=== PATIENT | female | born 2000 | race Caucasian/White ===

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

== ENCOUNTER → 2022-08-08 | Outpatient (CLI) | payer OTHER ==
[~2022-08-08] MED LIST changes: +ONDA4TAB6 PO
[2022-08-08 16:10] LABS: BASO % 0.3 % (0.0-1.0); EOS # 0.2 10^3/uL (0.0-0.5); EOS % 2.7 % (0.0-3.0); HEMATOCRIT 39.3 % (36.0-47.0); HEMOGLOBIN 12.4 g/dl (12.0-15.5); LYMPH % 47.7 % (24.0-44.0); MEAN CORPUSCULAR HEMOGLOBIN 25.7 pg (27.0-33.0); MEAN CORPUSCULAR HGB CONC 31.6 g/dl (32.0-36.5); MEAN CORPUSCULAR VOLUME 81.4 fl (80.0-96.0); MONO # 0.6 10^3/uL (0.0-0.8); MONO % 8.8 % (2.0-8.0); NEUTROPHILS # 2.5 10^3/uL (1.5-8.5); NEUTROPHILS % 40.2 % (36.0-66.0); PLATELET COUNT, AUTOMATED 274 10^3/uL (150-450); RED BLOOD COUNT 4.83 10^6/uL (4.00-5.40); WHITE BLOOD COUNT 6.2 10^3/uL (4.0-10.0)
[2022-08-08 18:01] LABS: ALBUMIN 3.8 GM/DL (3.2-5.2); BLOOD UREA NITROGEN 10 MG/DL (7-18); CALCIUM LEVEL 9.5 MG/DL (8.5-10.1); CARBON DIOXIDE LEVEL 29 MEQ/L (21-32); CHLORIDE LEVEL 106 MEQ/L (98-107); FREE T4 1.11 NG/DL (0.76-1.46); GLOMERULAR FILTRATION RATE > 60.0 (>60); GLUCOSE, FASTING 92 MG/DL (70-100); PHOSPHORUS LEVEL 3.2 MG/DL (2.5-4.9); POTASSIUM SERUM 4.2 MEQ/L (3.5-5.1); SODIUM LEVEL 138 MEQ/L (136-145); THYROID STIMULATING HORMONE 0.841 uIU/ML (0.358-3.740)
[2022-08-08 18:28] LABS: HCG, SERUM QUALITATIVE NEGATIVE (NEGATIVE)
== END ==
LOC: M LAB 15:16
PROVIDERS: ATTEND Physician Assistant
DX: Z00.8 Encounter for other general examination (principal); N91.2 Amenorrhea, unspecified; R53.83 Other fatigue

== ENCOUNTER 2023-03-27 18:43 | Emergency (ER) | payer OTHER ==
[~2023-03-27] VITALS: Ht 162.6 cm; Wt 93.2 kg
[2023-03-27 18:44] VITALS: TEMP 98.8
[2023-03-27] MEDS ORDERED: BACT800T5 PO (21:14)
[2023-03-27] MEDS ORDERED: IBUP-1022 PO (21:14)
[2023-03-27] MEDS ORDERED: IBUPROFEN 600MG TAB PO ONE (21:15)
[2023-03-27] MEDS ORDERED: BACTRIM 160MG/800MG DS TAB PO ONE (21:20)
[2023-03-27 21:23] VITALS: BP 125/75; O2SAT 99
== END 2023-03-27 21:27 | disposition home or self-care (01) ==
LOC: M ED 18:43
DX: L03.031 Cellulitis of right toe (principal); F10.10 Alcohol abuse, uncomplicated; Z79.1 Long term (current) use of non-steroidal anti-inflammatories (NSAID); Z79.83 Long term (current) use of bisphosphonates; Z79.899 Other long term (current) drug therapy

== ENCOUNTER → 2023-07-12 | Outpatient (REF) | payer OTHER ==
[~2023-07-12] MED LIST changes: +BACT800T5 PO; +IBUP-1022 PO
== END ==
LOC: M LAB REF 16:56
PROVIDERS: ATTEND Nurse Practitioner Family
DX: J02.9 Acute pharyngitis, unspecified (principal)

== ENCOUNTER 2023-09-04 21:51 | Emergency (ER) | payer MEDICAID, OTHER ==
[~2023-09-04] VITALS: Ht 162.6 cm; Wt 78.8 kg
[2023-09-04 22:51] LABS: BASO # 0.1 10^3/uL (0.0-0.2); BASO % 0.6 % (0.0-1.0); EOS # 0.3 10^3/uL (0.0-0.5); EOS % 3.4 % (0.0-3.0); HEMATOCRIT 45.2 % (36.0-47.0); HEMOGLOBIN 15.1 g/dl (12.0-15.5); LYMPH # 2.8 10^3/uL (1.5-5.0); LYMPH % 28.3 % (24.0-44.0); MEAN CORPUSCULAR HEMOGLOBIN 27.9 pg (27.0-33.0); MEAN CORPUSCULAR HGB CONC 33.4 g/dl (32.0-36.5); MEAN CORPUSCULAR VOLUME 83.4 fl (80.0-96.0); MONO # 0.6 10^3/uL (0.0-0.8); MONO % 5.5 % (2.0-8.0); NEUTROPHILS # 6.2 10^3/uL (1.5-8.5); NEUTROPHILS % 61.7 % (36.0-66.0); PLATELET COUNT, AUTOMATED 316 10^3/uL (150-450); RED BLOOD COUNT 5.42 10^6/uL (4.00-5.40); WHITE BLOOD COUNT 10.1 10^3/uL (4.0-10.0)
[2023-09-04 23:10] LABS: LIPASE 28 U/L (12-53)
[2023-09-04 23:12] LABS: ALBUMIN 3.9 G/DL (3.2-5.2); ALKALINE PHOSPHATASE 77 U/L (46-116); ALT/SGPT 26 U/L (7.0-40); AST/SGOT 14 U/L (<34); BILIRUBIN,DIRECT < 0.1 MG/DL (<0.4); BILIRUBIN,TOTAL 0.3 MG/DL (0.3-1.2); TOTAL PROTEIN 7.6 G/DL (5.7-8.2)
[2023-09-04 23:17] LABS: HCG, SERUM QUALITATIVE NEGATIVE (NEGATIVE)
[2023-09-05 00:08] LABS: BLOOD UREA NITROGEN 13 MG/DL (9-23); CALCIUM LEVEL 9.5 MG/DL (8.5-10.1); CARBON DIOXIDE LEVEL 29 MMOL/L (20-31); CHLORIDE LEVEL 103 MMOL/L (98-107); CREATININE FOR GFR 0.79 MG/DL (0.55-1.30); GLOMERULAR FILTRATION RATE > 60.0 (>60); GLUCOSE, FASTING 107 MG/DL (60-100); POTASSIUM SERUM 4.1 MMOL/L (3.5-5.1); SODIUM LEVEL 140 MMOL/L (136-145)
[2023-09-05 06:34] VITALS: BP 118/74; TEMP 97.4; O2SAT 99
[2023-09-05] MEDS ORDERED: MAGNESIUM CITRATE 300ML BTL PO ONE (06:35)
[2023-09-05] MEDS ORDERED: COLA100C5 PO (06:41)
== END 2023-09-05 06:49 | disposition home or self-care (01) ==
LOC: M ED 21:51
DX: K59.00 Constipation, unspecified (principal); F10.10 Alcohol abuse, uncomplicated; Z79.83 Long term (current) use of bisphosphonates; Z79.1 Long term (current) use of non-steroidal anti-inflammatories (NSAID); Z79.899 Other long term (current) drug therapy

== ENCOUNTER → 2024-01-15 | Outpatient (REF) | payer OTHER ==
[~2024-01-15] MED LIST changes: +COLA100C5 PO
[2024-01-15 14:48] LABS: BASO # 0.1 10^3/uL (0.0-0.2); BASO % 0.7 % (0.0-1.0); EOS # 0.2 10^3/uL (0.0-0.5); EOS % 2.1 % (0.0-3.0); HEMATOCRIT 42.6 % (36.0-47.0); HEMOGLOBIN 14.2 g/dl (12.0-15.5); LYMPH # 2.2 10^3/uL (1.5-5.0); MEAN CORPUSCULAR HEMOGLOBIN 28.5 pg (27.0-33.0); MEAN CORPUSCULAR HGB CONC 33.3 g/dl (32.0-36.5); MEAN CORPUSCULAR VOLUME 85.5 fl (80.0-96.0); MONO # 0.6 10^3/uL (0.0-0.8); MONO % 7.4 % (2.0-8.0); NEUTROPHILS # 4.6 10^3/uL (1.5-8.5); NEUTROPHILS % 60.5 % (36.0-66.0); PLATELET COUNT, AUTOMATED 269 10^3/uL (150-450); RED BLOOD COUNT 4.98 10^6/uL (4.00-5.40); WHITE BLOOD COUNT 7.6 10^3/uL (4.0-10.0)
[2024-01-15 15:00] LABS: HEMOGLOBIN A1c 4.8 % (4.0-6.0)
[2024-01-15 15:18] LABS: ALBUMIN 3.7 G/DL (3.2-5.2); ALKALINE PHOSPHATASE 73 U/L (46-116); ALT/SGPT 25 U/L (7.0-40); AST/SGOT 16 U/L (<34); BILIRUBIN,TOTAL 0.4 MG/DL (0.3-1.2); BLOOD UREA NITROGEN 9 MG/DL (9-23); CALCIUM LEVEL 9.4 MG/DL (8.5-10.1); CARBON DIOXIDE LEVEL 27 MMOL/L (20-31); CHLORIDE LEVEL 106 MMOL/L (98-107); CHOLESTEROL LEVEL 202 MG/DL (<200); CHOLESTEROL RISK RATIO 4.77 (<5); CREATININE FOR GFR 0.87 MG/DL (0.55-1.30); GLOMERULAR FILTRATION RATE > 60.0 (>60); GLUCOSE, FASTING 84 MG/DL (60-100); HDL CHOLESTEROL 42.3 MG/DL (>40); LDL CHOLESTEROL 136.9 MG/DL (<100); NON-HDL-C 159.7 MG/DL; POTASSIUM SERUM 4.7 MMOL/L (3.5-5.1); SODIUM LEVEL 138 MMOL/L (136-145); TRIGLYCERIDES LEVEL 114 MG/DL (<150)
[2024-01-15 15:19] LABS: THYROID STIMULATING HORMONE 2.122 uIU/ML (0.55-4.78); TOTAL 25(OH) VITAMIN D 27.6 NG/ML (20.0-100.0)
== END ==
LOC: M LAB REF 12:38
PROVIDERS: ATTEND Nurse Practitioner Family
DX: Z13.228 Encounter for screening for other metabolic disorders (principal)

== ENCOUNTER 2024-04-10 22:25 | Emergency (ER) | payer OTHER ==
[~2024-04-10] VITALS: Ht 162.6 cm; Wt 79.9 kg
[~2024-04-10 22:25] MED LIST changes: +ONDA-282 PO; -ONDA4TAB6 PO
[2024-04-10 22:26] VITALS: BP 131/77; TEMP 98.2; O2SAT 98
[2024-04-10] MEDS ORDERED: TRAZ-252 (22:34)
[2024-04-10] MEDS ORDERED: HYDR-3363 (22:34)
[2024-04-10] MEDS ORDERED: SERTRALINE (22:34)
[2024-04-11] MEDS: traZODone 50 MG TAB PO ONE (01:20)
[2024-04-11] MEDS ORDERED: TRAZ-252 PO (01:27)
[2024-04-11] MEDS ORDERED: HYDR-3363 PO (01:27)
[2024-04-11] MEDS ORDERED: ZOLO100T PO (01:27)
[2024-04-11] MEDS: SERTRALINE 100 MG TAB PO ONE (01:36)
== END 2024-04-11 01:46 | disposition home or self-care (01) ==
LOC: M ED 22:25
DX: Z76.0 Encounter for issue of repeat prescription (principal); F41.9 Anxiety disorder, unspecified; F32.A Depression, unspecified; F90.9 Attention-deficit hyperactivity disorder, unspecified type; F10.10 Alcohol abuse, uncomplicated; Z79.899 Other long term (current) drug therapy

== ENCOUNTER → 2025-04-17 | Outpatient (REF) | payer OTHER, MEDICAID ==
[~2025-04-17] MED LIST changes: +HYDR-3363; +HYDR-3363 PO; +SERTRALINE; +TRAZ-252; +TRAZ-252 PO; +ZOLO100T PO
[2025-04-17 15:44] LABS: BASO # 0.1 10^3/uL (0.0-0.2); BASO % 0.7 % (0.0-1.0); EOS # 0.2 10^3/uL (0.0-0.5); EOS % 2.6 % (0.0-3.0); LYMPH # 2.1 10^3/uL (1.5-5.0); LYMPH % 30.3 % (24.0-44.0); MONO # 0.4 10^3/uL (0.0-0.8); MONO % 6.0 % (2.0-8.0); NEUTROPHILS # 4.1 10^3/uL (1.5-8.5); NEUTROPHILS % 60.0 % (36.0-66.0); PLATELET COUNT, AUTOMATED 309 10^3/uL (150-450)
[2025-04-17 16:17] LABS: ALT/SGPT 16 U/L (7.0-40); AST/SGOT 17 U/L (<34); CALCIUM LEVEL 9.5 MG/DL (8.5-10.1); CARBON DIOXIDE LEVEL 27 MMOL/L (20-31); CHLORIDE LEVEL 102 MMOL/L (98-107); CHOLESTEROL LEVEL 235 MG/DL (<200); CHOLESTEROL RISK RATIO 4.70 (<5); CREATININE FOR GFR 0.81 MG/DL (0.55-1.30); GLOMERULAR FILTRATION RATE > 90.0 (>60); IRON (FE) 88 UG/DL (50-170); LDL CHOLESTEROL 150.4 MG/DL (<100); NON-HDL-C 185.0 MG/DL; POTASSIUM SERUM 4.4 MMOL/L (3.5-5.1); SODIUM LEVEL 139 MMOL/L (136-145); TRIGLYCERIDES LEVEL 173 MG/DL (<150)
[2025-04-17 16:19] LABS: TOTAL 25(OH) VITAMIN D 46.7 NG/ML (20.0-100.0)
[2025-04-17 16:35] LABS: ESTIMATED AVERAGE GLUCOSE 103.0 MG/DL (60-110)
== END ==
LOC: M LAB REF 14:34
PROVIDERS: ATTEND Student in an Organized Health Care Education/Training Program
DX: E55.9 Vitamin D deficiency, unspecified (principal); Z68.29 Body mass index [BMI] 29.0-29.9, adult; D64.9 Anemia, unspecified

== ENCOUNTER → 2025-07-11 | Outpatient (CLI) | payer OTHER ==
[~2025-07-11] MED LIST changes: -IBUP-1022 PO; +IBUP600T42 PO
== END ==
LOC: M LAB 13:01 → M RAD 13:01
PROVIDERS: ATTEND Student in an Organized Health Care Education/Training Program
DX: M54.41 Lumbago with sciatica, right side (principal); G89.29 Other chronic pain

== ENCOUNTER 2025-09-28 11:02 | Day surgery (SDC) | payer OTHER ==
[~2025-09-28] VITALS: Ht 162.6 cm; Wt 81.5 kg
[~2025-09-28 11:02] MED LIST changes: +LIDOCAINE 2% 100 MG/5 ML SDV (FOR ANES.) As Ordered ONE; +ONDANSETRON 4MG/2ML VIAL As Ordered ONE; +OXYMETAZOLINE 0.05% NASAL SPRAY As Ordered ONE; +ROCURONIUM BROMIDE 50MG/5ML VIAL As Ordered ONE; +SUGAMMADEX SODIUM 500 MG/5 ML VIAL As Ordered ONE; +TRAZ1TAB11 PO; +TRAZ1TAB14 PO; +dexAMETHasone 4 MG/ML 1 ML VIAL As Ordered ONE; +dexAMETHasone 4 MG/ML 1 ML VIAL IV ONE
[2025-09-28] MEDS ORDERED: LR 1,000 ML IV SCH (11:05)
[2025-09-28] MEDS ORDERED: NAPR-855 PO (11:40)
[2025-09-28] MEDS ORDERED: MIDAZOLAM INJ 2 MG/2 ML VIAL As Ordered ONE (11:53)
[2025-09-28] MEDS: AMPICILLIN SOD/SULBACTAM SOD 3 GM in D5W MINI-BAG 100 ML IV ONE (13:22)
[2025-09-28] MEDS ORDERED: ACETAMINOPHEN 1000MG/100ML IV BAG As Ordered ONE (13:25)
[2025-09-28] MEDS ORDERED: MORPHINE 2 MG/ML 1 ML VIAL IV PRN (13:50)
[2025-09-28] MEDS ORDERED: HYDROMORPHONE HCL 0.5 MG/0.5 ML SYRINGE IV PRN (13:50)
[2025-09-28] MEDS: CHLORHEXIDINE GLUCONATE 0.12% 15 ML UDC As Ordered ONE (14:33)
[2025-09-28] MEDS: ONDANSETRON 4MG/2ML VIAL IV PRN (14:35)
[2025-09-28 15:22] VITALS: BP 112/63; TEMP 97.9; O2SAT 98
== END 2025-09-28 16:17 | disposition home or self-care (01) ==
LOC: M SDC 11:02
PROVIDERS: ATTEND Dentist
DX: K02.9 Dental caries, unspecified (principal); J30.1 Allergic rhinitis due to pollen; F41.9 Anxiety disorder, unspecified; F32.A Depression, unspecified; F90.9 Attention-deficit hyperactivity disorder, unspecified type; Z79.899 Other long term (current) drug therapy
CPT/HCPCS: 81025; 88300; D7210; J0131; J0295; J1100; J2250; J2405; J3010